=== PATIENT | female | born 1975 | race Caucasian/White ===

== ENCOUNTER 2018-10-10 11:39 | Emergency (ER) | payer OTHER, SELFPAY ==
[2018-10-10 11:48] VITALS: BP 125/70; PULSE 75; RESP 16; TEMP 36.3; O2SAT 97
[2018-10-10 12:22] LABS: Bilirubin Negative (Negative); Blood Small (Negative); Clarity Clear; Glucose Negative (Negative); Ketones Negative (Negative); Leukocyte Esterase Negative (Negative); Nitrite Negative (Negative); Specific Gravity 1.015 (1.005-1.025); Urobilinogen 0.2 EU/dL (Up TO 0.2); pH 7.5 (5-8)
[2018-10-10 12:36] LABS: Bacteria Few HPF (Negative); C & S Indicated? No/Sq. Contamination; Casts Negative LPF (Negative); Crystals Negative HPF (Negative); Epithelial Cells Many HPF (Negative); Mucus Negative (Negative)
--- NOTE | 2018-10-10 13:54 | DI.CT_ITS ---
SYMPTOMS/DIAGNOSIS: ABDOMINAL PAIN, URINARY SYMPTOMS, CVA TENDERNESS RIGHT > LEFT, HEMATURIA CT EXAMINATION OF THE ABDOMEN AND PELVIS: A renal colic examination was carried out according to the usual protocol without contrast enhancement. The lung bases are unremarkable. There is no pleural effusion. The heart does not appear enlarged. Hepatomegaly is demonstrated. The gallbladder, and pancreas and spleen are intact. The adrenals are unremarkable. Nonobstructing left nephrolithiasis is demonstrated. There is no evidence of hydronephrosis. There is no evidence of ureterolithiasis or ureterectasis. There is no demonstrated bowel abnormality or evidence of obstruction. The appendix is normal. The bladder is intact. The uterus is intact. There is a small quantity of free fluid in the pelvis. There is no evidence of an aortic aneurysm. A tiny fat-containing umbilical hernia is demonstrated. There are degenerative bony changes at L5-S1 associated with a narrowed vacuum disc. SUMMARY: Nonobstructing left nephrolithiasis is demonstrated. The liver is enlarged. There is a small quantity of pelvic free fluid. A tiny fat- containing umbilical hernia is identified. The examination is otherwise unremarkable.
--- NOTE | 2018-10-10 15:02 | ED.GENADUL_ITS ---
Discharge Plan Disposition Patient Disposition: HOME Discharge Details Chief Complaint: Urinary Clinical Impression: UTI (urinary tract infection), Nephrolithiasis, Hematuria Primary Care Provider: None,None ED Provider: Florian Jeronimo Home Meds and New Rx's Prescriptions: New cephalexin [Keflex] 500 mg capsule 500 mg PO QID Qty: 40 RF: 0 Continued fluticasone propion-salmeterol [Advair Diskus] 250-50 mcg/dose Blister With Device 1 inh BID RF: 0 sertraline 100 mg Tablet 150 mg PO DAILY RF: 0 albuterol sulfate [ProAir HFA] 90 mcg/actuation Hfa Aerosol Inhaler RF: 0 aripiprazole [Abilify] 5 mg Tablet 5 mg PO DAILY RF: 0 Discharge Instructions Instructions: Kidney Stones (ED), Urinary Tract Infection in Women (ED), Hematuria (ED) Additional Instructions: Please take antibiotic as prescribed. Drink plenty of fluid. Follow-up with your doctor. Call for an appointment. Return to the ER for any worsening or new concerning symptoms. Discharge Data Discharge Date/Time-TO BE ENTERED AT DEPARTURE: 10/10/18 15:11 Medical Decision Making 43-year-old female with history of prior renal stones, here with 2 weeks of in creased urinary frequency, urinary urgency and dysuria. She has had some intermittent nuasea, bilateral low back pain has also had fatigue. Consider pyelonephritis vs septic stone. CT of the abdomen pelvis interpreted by radiology: SUMMARY: Nonobstructing left nephrolithiasis is demonstrated. The liver is enlarged. There is a small quantity of pelvic free fluid. A tiny fat-containing umbilical hernia is identified. The examination is otherwise unremarkable. UA inconclusive. Given her symptoms, plan to treat for UTI. I will give pyelonephritis dosing of Keflex. Patient reassessed there is remained stable. Plan for outpatient follow-up. Patient understands importance of completion of full course of antibiotic and that she should return should she have any worsening or new concerning symptoms. Disposition decision was made weighing the risks and benefits of hospitalization versus outpatient treatment, the risk for further decompensation, and the patient's wishes. The patient was stable and requested discharge. Prior to discharge, my usual and customary return precautions were reviewed with the patient - this included follow-up instructions and reason to return to the emergency department if condition worsens, does not improve as expected, or other new concerns arise. HPI General Mode of arrival: ambulatory . Date/Time Provider Initiated Documentation: 10/10/18 12:39 . Limitations to Documentation: no limitations . Information obtained by: patient . HPI Narrative: 43-year-old female with history of prior renal stones, here with chief complaint of urinary symptoms. Patient notes that she has been experiencing 2 weeks of increased urinary frequency, urinary urgency and dysuria. Symptoms are moderate no modifiers. She has had some associated intermittent fevers, bilateral low back pain has also had fatigue. She has had nausea intermittently. Related Data Home Medications Medication Instructions Recorded Confirmed albuterol sulfate [ProAir HFA] 10/10/18 aripiprazole [Abilify] 5 mg PO DAILY 10/10/18 10/10/18 cephalexin [Keflex] 500 mg PO QID #40 cap 10/10/18 fluticasone propion-salmeterol 1 inh BID 10/10/18 10/10/18 [Advair Diskus] sertraline 150 mg PO DAILY 10/10/18 10/10/18 Previous Rx's Medication Instructions Recorded cephalexin [Keflex] 500 mg PO QID #40 cap 10/10/18 Allergies Allergy/AdvReac Type Severity Reaction Status Date / Time No Known Allergies Allergy Unverified 10/10/18 11:51 General Stated Complaint: Urinary SHANNON: 4 Review of Systems Review of Systems All systems reviewed & are unremarkable except as noted in HPI and below PFSH Social History Smoking/Tobacco Use Status: Current every day Tobacco Type: cigarettes Smoking cigarettes per day: 10 Substance use type: does not use Exam Const General: comfortable and no acute distress Orientation: alert and awake [facility] Mouth: moist mucous membranes Eyes Conjunctivae: normal conjunctivae Sclera: normal sclerae Resp Auscultation: clear to auscultation bilaterally, no rales, no rhonchi and no wheezes Cardio Jugular venous pressure: no JVD Rate: regular rate and not tachycardic Rhythm: regular rhythm GI Palpation: soft, not firm, no guarding, no masses, not rigid and nontender General: CVA tenderness bilaterally (L>R) Skin General skin exam: no rashes or lesions noted Neuro General: alert, awake and tone normal Extrem General: no edema Psych Appearance: grossly normal Course Vital Signs Temperature 36.3 C L 10/10/18 11:48 Pulse 75 10/10/18 11:48 Respiratory Rate 16 10/10/18 11:48 Blood Pressure 125/70 10/10/18 11:48 Pulse Oximetry 97 10/10/18 11:48 Temperature 36.3 C L 10/10/18 11:48 Temperature Source Skin 10/10/18 11:48 Pulse 75 10/10/18 11:48 Respiratory Rate 16 10/10/18 11:48 Respiratory Effort Non-Labored 10/10/18 11:48 Blood Pressure 125/70 10/10/18 11:48 Blood Pressure Position Sitting 10/10/18 11:48 Pulse Oximetry 97 10/10/18 11:48 Oxygen Delivery Method Room Air 10/10/18 11:48 Oxygen Flow Rate 0 10/10/18 11:48 Pain Level 2 10/10/18 12:23 Lab/Test Results Lab/Test Results: Laboratory Tests Range/Units 10/10/18 12:00 Urine Color (Yellow) Yellow Urine Clarity Clear Urine pH (5-8) 7.5 Ur Specific [place] (1.005-1.025) 1.015 Urine Protein (Negative) mg/dL Negative Urine Ketones (Negative) mg/dL Negative Urine Blood (Negative) Small H Urine Nitrite (Negative) Negative Urine Bilirubin (Negative) Negative Urine Urobilinogen (Up TO 0.2) EU/dL 0.2 Ur Leukocyte Esterase (Negative) Negative Urine RBC (0-2) 10-20 H Urine WBC (0-5) HPF 3-5 Ur Epithelial Cells (Negative) HPF Many Urine Crystals (Negative) HPF Negative Urine Bacteria (Negative) HPF Few Urine Casts (Negative) LPF Negative Urine Mucus (Negative) Negative Ur Culture Indicated? No/sq. contamination Urine Glucose (Negative) mg/dL Negative POC- Test(urine) Negative
[2018-10-10 15:10] VITALS: TEMP 36.5
== END 2018-10-10 15:11 | disposition home or self-care (01) ==
PROVIDERS: Emergency Provider Student in an Organized Health Care Education/Training Program
DX: N20.0 Calculus of kidney (principal); N39.0 Urinary tract infection, site not specified; R31.9 Hematuria, unspecified
CPT/HCPCS: 81025; 99284; 74176; 81003; 81015; 87086

== ENCOUNTER → 2021-11-11 00:35 | Outpatient (CLI) | payer MEDICAID, SELFPAY | PROVIDERS: Visit Provider Obstetrics & Gynecology ==

== ENCOUNTER 2023-04-03 17:55 | Outpatient (CLI) | payer MEDICAID, SELFPAY ==
[2023-04-03 15:17] LABS: Abs Immature Grans 0.04 10^3/uL (0.0-0.06); Absolute Basophil Count 0.12 10^3/uL (0.0-0.2); Absolute Eosinophil Count 0.31 10^3/uL (0.0-0.7); Absolute Lymphocyte Count 3.95 10^3/uL (1.2-3.4); Absolute Monocyte Count 0.82 10^3/uL (0.1-0.8); Absolute Neutrophil Count 5.87 10^3/uL (1.2-6.7); Basophils % 1.1; Eosinophils % 2.8; HCT 40.6 % (36.0-46.0); HGB 13.3 g/dL (11.2-15.7); Immature Grans % 0.4; Lymphocytes % 35.5; MCH 28.9 pg (27.0-33.0); MCHC 32.8 % (32.0-36.0); MCV 88 fL (80-95); MPV 10.1 fL (8.0-11.0); Monocytes % 7.4; Neutrophils % 52.8; Platelet Count 262 10^3/uL (130-400); RDW 13.1 % (11.7-14.6); RDW-SD 42.4 fL; WBC 11.12 10^3/uL (4.4-10.8)
[2023-04-06 08:26] LABS: IgE <2 IU/mL (<158)
== END 2023-04-03 17:56 | disposition home or self-care (01) ==
LOC: LBO 17:56
PROVIDERS: PCP Internal Medicine; Visit Provider Student in an Organized Health Care Education/Training Program
DX: J45.909 Unspecified asthma, uncomplicated (principal)
CPT/HCPCS: 36415; 82785; 85025

== ENCOUNTER 2023-05-12 18:59 | Emergency (ER) | payer MEDICAID, SELFPAY ==
--- NOTE | 2023-05-12 19:00 | DI.RAD_ITS ---
Exam(s) XR WRIST RT COMPLETE EXAM: XR WRIST RT COMPLETE CLINICAL HISTORY: Wrist Injury. TECHNIQUE: 2D digital imaging was performed. Three views. COMPARISON: No exams were available for comparison FINDINGS: BONES: No acute fracture is present. No bony destructive lesion is seen. JOINTS: The carpal bones are normally aligned. Degenerative changes 1st carpal metacarpal joint. SOFT TISSUE: Mild swelling. IMPRESSION: Degenerative changes. No evidence of fracture. DATA REPOSITORY: RADIATION DOSE DELIVERED:
[2023-05-12 19:03] VITALS: BP 137/81; PULSE 85; RESP 16; TEMP 36.2; O2SAT 7
--- NOTE | 2023-05-12 19:49 | DI.VRAD_ITS ---
PROCEDURE INFORMATION: Exam: XR Right Wrist Exam date and time: 05/12/2023 7:22 PM Age: 47 years old Clinical indication: Injury or trauma; Fall; Blunt trauma (contusions or hematomas); Right; Patient HX: Wrist injury TECHNIQUE: Imaging protocol: Radiologic exam of the right wrist. Views: 3 or more views. COMPARISON: No relevant prior studies available. FINDINGS: Bones/joints: Moderate degenerative changes of the trapezial metacarpal joint. Osseous alignment is normal. No acute fracture. Soft tissues: Normal. IMPRESSION: No acute abnormality Dictated and Authenticated by: Sandro Kennedy MD. Ordering:CHAS Mcneil MD
--- NOTE | 2023-05-12 19:56 | ED.GENADUL_ITS ---
Discharge Plan Disposition Patient Disposition: Home Condition: Stable Discharge Details Primary Care Provider: Sirena Cotter ED Provider: Ewa Irving Home Meds and New Rx's Prescriptions: Continued venlafaxine 150 mg tablet extended release 24 hr 150 mg PO DAILY gabapentin 600 mg tablet 600 mg PO DAILY pantoprazole 40 mg tablet,delayed release (DR/EC) 40 mg PO DAILY Hold Instructions: Changed by Provider montelukast [Singulair] 10 mg tablet 10 mg PO DAILY Breztri Aerosphere 160-9-4.8 mcg/actuation HFA aerosol inhaler 2 inh inhalation BID Qty: 10.7 10RF Trelegy Ellipta 200-62.5-25 mcg blister with device 1 inh inhalation DAILY Qty: 60 8RF ipratropium-albuterol 0.5 mg-3 mg(2.5 mg base)/3 mL solution for nebulization 3 ml inhalation Q4H PRN up4 Probiotics Ultra 50 billion cell capsule 1 cap PO DAILY mirtazapine 15 mg tablet 30 mg PO QHS fluticasone propion-salmeterol [Advair Diskus] 250-50 mcg/dose Blister With Device 1 inh BID albuterol sulfate [ProAir HFA] 90 mcg/actuation Hfa Aerosol Inhaler Discharge Instructions Instructions: Osteoarthritis (ED), Wrist Sprain (ED) Additional Instructions: No evidence of acute fracture on the x-rays. You do have some degenerative joint changes on the metacarpal joint. Rest ice compression elevation. Wear the splint as needed for comfort. Take an anti-inflammatory such as [id number] arthritis medication or Tylenol or ibuprofen. Follow up with primary care provider in 3-5 days. Return to ED sooner if any worsening or concerns. Increase oral fluids. Please take Tylenol or Ibuprofen with food every 4-6 hours as needed for pain and swelling. Stand Alone Forms: Work Release Referrals: Sirena Cotter [Primary Care Provider] - 5 days Medical Decision Making 47-year-old female presents to the ER with a chief complaint of right wrist pain after falling out of bed and putting pressure on it last night. Patient does have a history of arthritis. No history of surgeries to the wrist. No obvious deformity she does have some swelling and tenderness with palpation to the medial wrist joint. No thenar eminence tenderness. X-ray 3 view ordered which shows degenerative changes no acute fracture. Will give ibuprofen and a wrist splint and instructed on RICE procedures and follow-up care. Imaging Data Radiologic Study: Imaging: X-Ray Radiologist's impression: Age: 47 years old Clinical indication: Injury or trauma; Fall; Blunt trauma (contusions or hematomas); Right; Patient HX: Wrist injury TECHNIQUE: Imaging protocol: Radiologic exam of the right wrist. Views: 3 or more views. COMPARISON: No relevant prior studies available. FINDINGS: Bones/joints: Moderate degenerative changes of the trapezial metacarpal joint. Osseous alignment is normal. No acute fracture. Soft tissues: Normal. IMPRESSION: No acute abnormality Thank you for allowing us to participate in the care of your patient. Dictated and Authenticated by: Sandro Kennedy MD [facility] General Mode of arrival: ambulatory . Date/Time Provider Initiated Documentation: 05/12/23 19:06 . Limitations to Documentation: no limitations . Information obtained by: patient, RN notes reviewed and old records reviewed . HPI Narrative: 47-year-old female with past medical history of anxiety depression, hoarseness, migraine, MRSA cholecystectomy bipolar disorder presents with right wrist pain a nd swelling after falling out of bed last night. No obvious deformity distal CMS intact pulses present. She has not taken any Tylenol or ibuprofen prior to arrival. No other complaints or injuries. Related Data Home Medications Medication Instructions Recorded Confirmed albuterol sulfate 90 mcg/actuation 10/10/18 04/03/23 aerosol inhaler (ProAir HFA) fluticasone 250 mcg-salmeterol 50 1 inh BID 10/10/18 10/13/21 mcg/dose blistr powdr for inhalation (Advair Diskus) gabapentin 600 mg tablet 600 mg PO DAILY 10/13/21 05/12/23 pantoprazole 40 mg tablet,delayed 40 mg PO DAILY 10/13/21 05/12/23 release venlafaxine 150 mg tablet,extended 150 mg PO DAILY 10/13/21 05/12/23 release 24 hr Lactobacillus 1 cap PO DAILY 02/27/23 05/12/23 no.51-Bifidobacterium no.4 50 billion cell capsule (up4 Probiotics Ultra) ipratropium 0.5 mg-albuterol 3 mg 3 ml inhalation Q4H PRN 02/27/23 05/12/23 (2.5 mg base)/3 mL nebulization soln budesonide 160 mcg-glycopyr 9 2 inh inhalation BID #10.7 grams 04/03/23 05/12/23 mcg-formot 4.8 mcg/actuation HFA inhaler (Breztri Aerosphere) mirtazapine 15 mg tablet 30 mg PO QHS 04/03/23 05/12/23 montelukast 10 mg tablet 10 mg PO DAILY 04/03/23 05/12/23 (Singulair) fluticasone fur. 200 mcg-umeclid 1 inh inhalation DAILY #60 ea 04/04/23 05/12/23 62.5 mcg-vilant 25 mcg inhalat.powder (Trelegy Ellipta) Previous Rx's Medication Instructions Recorded budesonide 160 mcg-glycopyr 9 2 inh inhalation BID #10.7 grams 04/03/23 mcg-formot 4.8 mcg/actuation HFA inhaler (Breztri Aerosphere) fluticasone fur. 200 mcg-umeclid 1 inh inhalation DAILY #60 ea 04/04/23 62.5 mcg-vilant 25 mcg inhalat.powder (Trelegy Ellipta) Allergies Allergy/AdvReac Type Severity Reaction Status Date / Time codeine Allergy Unknown Verified 05/12/23 19:07 nickel AdvReac Unknown Itching Verified 05/12/23 19:07 General Stated Complaint: Orthopedic SHANNON: 4 PFSH All Active Problems Voice hoarseness (Acute) Anxiety (Chronic) Axillary lymphadenopathy (Acute) Bereavement (Acute) Bronchitis (Acute) CAP (community acquired pneumonia) (Acute) Chronic female pelvic pain (Acute) Macular degeneration (Acute) Delayed gastric emptying (Acute) Depression with anxiety (Acute) Inflammatory dermatosis (Acute) Medication withdrawal (Acute) Asthma (Chronic) severe persistent/ acute asthma exacerbations [place] itching (Acute) Postcoital bleeding (Acute) Medical History Colitis Diarrhea MRSA (methicillin resistant Staphylococcus aureus) Migraine Pain in left elbow joint Vomiting Nausea Started s/p laparoscopies. Takes Gabapentin for it. Alopecia Started losing hair at 3yrs, has no body hair at all. Gall bladder disease Planning surgical removal (as of September 2021) History of eating disorder Bipolar disorder Disrupted sleep-wake cycle Abdominal pain Surgical History History of colonoscopy History of esophagogastroduodenoscopy (EGD) History of cholecystectomy History of 2009 History of laparoscopy Per PCP's records; pt uncertain of details. Op notes pending. 1st surgery Feb 2019: LSO and removal of paratubal cyst 2nd surgery Aug 1607/2019: Left salpingectomy 2rd surgery Sep 01 2019: Right salpingectomy Family History Father Alcohol use disorder Afib Depression Diabetes Emphysema, unspecified Heart disease Hypertension Neuropathy Brother Alcohol use disorder Anxiety Depression Mother Asthma Hyperlipidemia Hypertension Osteoporosis Sister Anxiety Asthma Depression Social History Smoking/Tobacco Use Status: Former Tobacco Use tobacco type: cigarettes Quit Date: 07/16/19 Smoking risk assessment performed?: Yes Alcohol Intake: current Alcohol Intake frequency: a few times a month Drug use: Daily Substance use type: marijuana Household members: significant other, children and other Details: partial custody of 12yo son Number of Children: 1 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 Started at age 20. Quit in 07/2019. Female Reproductive History Menstrual Age of Menarche: 15 Duration of menses: 3-5 days control method: permanent sterilization History History 3 Para 1 Hx # Term Pregnancies 1 Multiple births 0 Hx # Pregnancies Ectopic pregnancies AB induced Hx Number of Living Children 1 AB spontaneous 2 Past Pregnancies Del. Date GA/Weeks # Preg Succ Route Wgt Sex Labor Lgth Anesth esia Location Prov Complic 07/14/09 40 No vaginal 2976.7 g Male Exam Extrem Right upper extremity: wrist Details: tenderness, swelling, normal vascular exam, radial pulse present and ulnar pulse present; no unusual warmth and no deformity Course Vital Signs Vital signs: Vital Signs Temperature 36.2 C L 05/12/23 19:03 Pulse 85 05/12/23 19:03 Respiratory Rate 16 05/12/23 19:03 Blood Pressure 137/81 05/12/23 19:03 Pulse Oximetry 7 L 05/12/23 19:03 Temperature 36.2 C L 05/12/23 19:03 Temperature Source Temporal Artery Scan 05/12/23 19:03 Pulse 85 05/12/23 19:03 Respiratory Rate 16 05/12/23 19:03 Respiratory Effort Normal 05/12/23 19:06 Blood Pressure 137/81 05/12/23 19:03 Blood Pressure Position Sitting 05/12/23 19:03 Pulse Oximetry 7 L 05/12/23 19:03 Oxygen Delivery Method Room Air 05/12/23 19:03 Oxygen Flow Rate 0 05/12/23 19:03 Pain Level 5 05/12/23 19:25
[2023-05-12] MEDS: Ibuprofen 600 MG TAB PO (19:58)
--- NOTE | 2023-05-13 16:07 | NUR.NOTE ---
Accessed pt chart to determine [facility] billing information. Nursing Note:
== END 2023-05-12 20:08 | disposition home or self-care (01) ==
PROVIDERS: Emergency Provider Registered Nurse Emergency; PCP Internal Medicine
DX: M25.531 Pain in right wrist (principal); W06.XXXA Fall from bed, initial encounter
CPT/HCPCS: 29125; 99283; 73110

== ENCOUNTER 2023-08-13 15:41 | Outpatient (CLI) | payer MEDICAID, SELFPAY ==
--- NOTE | 2023-08-13 14:15 | DI.RAD_ITS ---
Exam(s) XR WRIST LT COMPLETE EXAM: XR WRIST LT COMPLETE CLINICAL HISTORY: left thumb pain. TECHNIQUE: 2D digital imaging was performed of the left wrist. Three images were obtained. PA, obl ique and lateral views were obtained. COMPARISON: No exams were available for comparison FINDINGS: BONES: No acute fracture is present. No bony destructive lesion is seen. JOINTS: The carpal bones are normally aligned. Marked degenerative changes are seen at the 1st carpom etacarpal joint with joint space narrowing and osteophytes. There is a large subchondral cyst in the base of the 1st metacarpal bone. The articular surfaces are otherwise well maintained. SOFT TISSUE: Normal. IMPRESSION: Marked osteoarthritis of the 1st CMC joint. DATA REPOSITORY: RADIATION DOSE DELIVERED:
== END 2023-08-13 15:42 | disposition home or self-care (01) ==
LOC: DIORS 15:41
PROVIDERS: PCP Internal Medicine; Visit Provider Physician Assistant
DX: M79.645 Pain in left finger(s) (principal)
CPT/HCPCS: 73110

== ENCOUNTER 2023-10-03 11:23 | Emergency (ER) | payer MEDICAID, SELFPAY ==
[2023-10-03 11:26] VITALS: BP 148/87; PULSE 98; RESP 20; TEMP 37.1; O2SAT 98
--- NOTE | 2023-10-03 11:30 | DI.RAD_ITS ---
Exam(s) XR WRIST RT COMPLETE EXAM: XR WRIST RT COMPLETE CLINICAL HISTORY: right wrist pain. TECHNIQUE: 2D digital imaging was performed. Three views. COMPARISON: CR XR WRIST LT COMPLETE from 08/13/2023 FINDINGS: BONES: No acute fracture is present. No bony destructive lesion is seen. JOINTS: The carpal bones are normally aligned. Degenerative changes noted at the 1st carpal metacarpal joint. SOFT TISSUE: Posterior soft tissue swelling. IMPRESSION: Degenerative changes at the 1st carpometacarpal joint. No acute abnormality. DATA REPOSITORY: RADIATION DOSE DELIVERED:
--- NOTE | 2023-10-03 13:33 | W.ED.GENAD ---
Discharge Plan Disposition Patient Disposition: Home Condition: Stable Discharge Details Clinical Impression: Acute pain of right wrist Primary Care Provider: Sirena Cotter ED Provider: Douglas Tamez Home Meds and New Rx's Prescriptions: No Action venlafaxine 150 mg tablet extended release 24 hr 75 mg PO DAILY gabapentin 600 mg tablet 600 mg PO DAILY Patient Comments: DOSE IS 1 TAB Q AM, 1 AT NOON, 2 Q PM montelukast [Singulair] 10 mg tablet 10 mg PO DAILY Breztri Aerosphere 160-9-4.8 mcg/actuation HFA aerosol inhaler 2 inh inhalation BID Qty: 10.7 10RF albuterol sulfate [ProAir HFA] 90 mcg/actuation HFA aerosol inhaler 2 puff inhalation Q4H Qty: 8.5 12RF lamotrigine [Lamictal] 100 mg tablet 100 mg PO QHS ipratropium-albuterol 0.5 mg-3 mg(2.5 mg base)/3 mL solution for nebulization 3 ml inhalation Q4H PRN up4 Probiotics Ultra 50 billion cell capsule 1 cap PO DAILY mirtazapine 15 mg tablet 30 mg PO QHS PreserVision AREDS 4,296 mcg-226 mg-90 mg capsule 2 cap PO DAILY Discharge Instructions Additional Instructions: xray doesn't demonstrate abnormality today keep follow up appointments with PCP and ortho Discharge Data Discharge Date/Time-TO BE ENTERED AT DEPARTURE: 10/03/23 12:19 HPI General Date/Time Provider Initiated Documentation: 10/03/23 11:42. Limitations to Documentation: no limitations. Information obtained by: patient. HPI Narrative: 48-year-old female with history of left wrist ganglion cyst presents for evaluation of right wrist pain. She states that last night she noticed there was a small bump on her wrist. She denies any trauma. She is worried that this may be the cancer that is on her left wrist. She reports that she is very worried that she had blood work at her primary care office and it showed an elevated VERONICA. She states that she is scheduled for an MRI and biopsy of the left wrist. She states that she is scheduled for blood work with her PCP to further evaluate the elevated VERONICA. Related Data Home Medications Medication Instructions Recorded Confirmed gabapentin 600 mg tablet 600 mg PO DAILY 10/13/21 10/03/23 venlafaxine 150 mg tablet,extended 75 mg PO DAILY 10/13/21 10/03/23 release 24 hr Lactobacillus 1 cap PO DAILY 02/27/23 10/03/23 no.51-Bifidobacterium no.4 50 billion cell capsule (up4 Probiotics Ultra) ipratropium 0.5 mg-albuterol 3 mg 3 ml inhalation Q4H PRN 02/27/23 10/03/23 (2.5 mg base)/3 mL nebulization soln mirtazapine 15 mg tablet 30 mg PO QHS 04/03/23 10/03/23 montelukast 10 mg tablet 10 mg PO DAILY 04/03/23 10/03/23 (Singulair) vitamins A,C,T-npcs-tixdlr 4,296 2 cap PO DAILY 06/12/23 10/03/23 mcg-226 mg-90 mg capsule (PreserVision AREDS) albuterol sulfate 90 mcg/actuation 2 puff inhalation Q4H #8.5 grams 07/13/23 10/03/23 aerosol inhaler (ProAir HFA) budesonide 160 mcg-glycopyr 9 2 inh inhalation BID #10.7 grams 07/13/23 10/03/23 mcg-formot 4.8 mcg/actuation HFA inhaler (Breztri Aerosphere) lamotrigine 100 mg tablet 100 mg PO QHS 09/06/23 10/03/23 (Lamictal) Previous Rx's Medication Instructions Recorded albuterol sulfate 90 mcg/actuation 2 puff inhalation Q4H #8.5 grams 07/13/23 aerosol inhaler (ProAir HFA) budesonide 160 mcg-glycopyr 9 2 inh inhalation BID #10.7 grams 07/13/23 mcg-formot 4.8 mcg/actuation HFA inhaler (Breztri Aerosphere) Allergies Allergy/AdvReac Type Severity Reaction Status Date / Time codeine Allergy Unknown Other (See Verified 10/03/23 11:32 Comment) nickel AdvReac Unknown Itching Verified 10/03/23 11:32 General Stated Complaint: Orthopedic SHANNON: 3 Exam Narrative Exam Narrative: Review of Systems: All systems reviewed & are unremarkable except as noted in HPI and below Well-developed, no acute distress NCAT PERRL, normal conjunctiva RRR Unlabored respiratory effort Nondistended abdomen Extremities w/o deformity, no cyanosis, no edema No appreciable bump or deformity on the right wrist No rashes or lesions. no focal neurologic deficits Patient anxious and crying Course Vital Signs Vital signs: Vital Signs Temperature 37.1 C 10/03/23 11:26 Pulse 98 H 10/03/23 11:26 Respiratory Rate 20 10/03/23 11:26 Blood Pressure 148/87 H 10/03/23 11:26 Pulse Oximetry 98 10/03/23 11:26 Temperature 37.1 C 10/03/23 11:26 Temperature Source Skin 10/03/23 11:26 Pulse 98 H 10/03/23 11:26 Respiratory Rate 20 10/03/23 11:26 Respiratory Effort Normal, Non-Labored 10/03/23 11:31 Blood Pressure 148/87 H 10/03/23 11:26 Blood Pressure Position Sitting 10/03/23 11:26 Pulse Oximetry 98 10/03/23 11:26 Oxygen Delivery Method Room Air 10/03/23 11:26 Oxygen Flow Rate 0 10/03/23 11:26 Pain Level 6 10/03/23 11:26 Medical Decision Making Evaluation of right wrist pain. Patient endorses a small bump though I do not palpate 1 on my examination. She does have a history of a left ganglion cyst which she thinks is cancer. She is scheduled for biopsy of the area. An x-ray was obtained of the right wrist today and this is unremarkable. At the time of discharge, the patient became very upset that I did not fast track her MRI of the right wrist and that she had already gotten x-rays 3 weeks ago of the right wrist at another hospital. I questioned this stating that she reported that the bump came just to last night. She states that she has an MRI scheduled of the right wrist but is not for another month and she finds this unacceptable. She also wants testing of the VERONICA done today. I advised that this is not part of an emergency department evaluation and that she needs to follow-up with her primary care for this. If she has additional wrist concerns, she is plugged into orthopedics already can follow-up with them for further evaluation. Medical Records Medical records reviewed: Yes I reviewed the patient's medical records. Quality:SDOH Health Related Social Needs: No Data to Display PFSH All Active Problems Acute pain of right wrist (Acute) Mass of left hand (Acute) Ganglion cyst of volar aspect of left wrist (Acute) Osteoarthritis of carpometacarpal joint of left thumb (Acute) Pain of left thumb (Acute) Voice hoarseness (Acute) Anxiety (Chronic) Axillary lymphadenopathy (Acute) Bereavement (Acute) Bronchitis (Acute) CAP (community acquired pneumonia) (Acute) Chronic female pelvic pain (Acute) Macular degeneration (Acute) Delayed gastric emptying (Acute) Depression with anxiety (Acute) Inflammatory dermatosis (Acute) Medication withdrawal (Acute) Asthma (Chronic) severe persistent/ acute asthma exacerbations Vulvar itching (Acute) Postcoital bleeding (Acute) Medical History Colitis Diarrhea MRSA (methicillin resistant Staphylococcus aureus) Migraine Pain in left elbow joint Vomiting Nausea Started s/p laparoscopies. Takes Gabapentin for it. Alopecia Started losing hair at 3yrs, has no body hair at all. Gall bladder disease Planning surgical removal (as of September 2021) History of eating disorder Bipolar disorder Disrupted sleep-wake cycle Abdominal pain Surgical History History of colonoscopy History of esophagogastroduodenoscopy (EGD) History of cholecystectomy History of 2009 History of laparoscopy Per PCP's records; pt uncertain of details. Op notes pending. 1st surgery Feb 2019: LSO and removal of paratubal cyst 2nd surgery Aug 1607/2019: Left salpingectomy 2rd surgery Sep 01 2019: Right salpingectomy Family History Father Alcohol use disorder Afib Depression Diabetes Emphysema, unspecified Heart disease Hypertension Neuropathy Brother Alcohol use disorder Anxiety Depression Mother Asthma Hyperlipidemia Hypertension Osteoporosis Sister Anxiety Asthma Depression Social History Smoking/Tobacco Use Status: Former Tobacco Use tobacco type: cigarettes Quit Date: 07/16/19 Smoking risk assessment performed?: Yes Alcohol Intake: current Alcohol Intake frequency: a few times a month Drug use: Daily Substance use type: marijuana Household members: significant other, children and other Details: partial custody of 12yo son Number of Children: 1 current occupation: RN at [employer] Sexually active: Yes Current gender identity: female What is your relationship status?: living with partner Panel score (0-1 are the most socially isolated patients): 1 What type of physical activity do you participate in: walking Duration: 15-30 minutes/day Frequency: 3-4 times per week Tonya/Tenriism: [employer] Do you feel safe at home: Yes Do you feel safe in your relationship?: Yes Additional Social history: Former tobacco user- 2ppd for 8year(s). Started at age 20. Quit in 07/2019. Female Reproductive History Menstrual Age of Menarche: 15 Duration of menses: 3-5 days control method: permanent sterilization History History 3 Para 1 Hx # Term Pregnancies 1 Multiple births 0 Hx # Pregnancies Ectopic pregnancies AB induced Hx Number of Living Children 1 AB spontaneous 2 Past Pregnancies Del. Date GA/Weeks # Preg Succ Route Wgt Sex Labor Lgth Anesthesia Location [facility] 07/14/09 40 No vaginal 2976.7 g Male
== END 2023-10-03 12:19 | disposition home or self-care (01) ==
PROVIDERS: Emergency Provider Emergency Medicine; PCP Internal Medicine
DX: M25.531 Pain in right wrist (principal); F17.210 Nicotine dependence, cigarettes, uncomplicated
CPT/HCPCS: 99283; 73110